=== PATIENT | female | born 1940 | race Caucasian/White ===

== ENCOUNTER 2024-02-28 12:03 | Emergency (ER) | payer OTHER ==
[~2024-02-28] VITALS: Ht 167.6 cm; Wt 81.6 kg
[~2024-02-28 12:03] MED LIST: AMIO200T66 PO; APIX2.5T PO; FURO20TA4 PO; GABA-529 PO; INSU100V SUBCUT; INSU300I SQ; LIP40 PO; LISI20TA30 PO; LOPE2CAP PO; LORA-258 PO; METO50TA7 PO
[2024-02-28 12:11] VITALS: BP_SYST 155; PULSE 53; RESP 23; TEMP 98.5; O2SAT 93
[2024-02-28 12:27] LABS: BASOPHILS # (AUTO) 0.1 K/uL (0.0-0.2); BASOPHILS % (AUTO) 1.2 % (0.0-2.0); EOSINOPHILS # (AUTO) 0.2 K/uL (0.0-0.4); EOSINOPHILS % (AUTO) 2.2 % (0.0-4.0); HEMATOCRIT 31.9 % (36-48); HEMOGLOBIN 10.4 g/dL (12.0-16.0); LYMPHOCYTES # (AUTO) 1.2 K/uL (1.0-5.5); LYMPHOCYTES % (AUTO) 13.4 % (20.5-51.5); MEAN CORPUSCULAR HEMOGLOBIN 27 pg (27-31); MEAN CORPUSCULAR HGB CONC 33 % (32-36); MEAN CORPUSCULAR VOLUME 81 fL (79.0-98.0); MONOCYTES # (AUTO) 0.6 K/uL (0.0-1.0); MONOCYTES % (AUTO) 6.1 % (1.7-9.3); NEUTROPHILS # (AUTO) 7.1 K/uL (1.8-7.7); NEUTROPHILS % (AUTO) 77.1 % (40.0-70.0); PLATELET COUNT (AUTO) 251 K/uL (130-430); RED BLOOD CELL COUNT(AUTO) 3.92 MIL/uL (4.2-6.2); RED CELL DISTRIBUTION WIDTH 15.5 % (9.0-15.0); WHITE BLOOD COUNT (AUTO) 9.2 K/uL (4.8-10.8)
[2024-02-28 13:01] LABS: ANION GAP 8 (5-15); CALCIUM 8.4 mg/dL (8.4-11.0); CARBON DIOXIDE 30 mmol/L (23-29); CHLORIDE 104 mmol/L (98-107); CREATINE KINASE, TOTAL 26 U/L (26-192); CREATININE 0.95 mg/dL (0.55-1.30); GLUCOSE 155 mg/dL (74-106); POTASSIUM 3.5 mmol/L (3.5-5.1); SODIUM SERUM 142 mmol/L (136-145); UREA NITROGEN, BLOOD 15 mg/dL (8-21)
[2024-02-28 13:02] LABS: INR 1.1 (0.8-1.2); PROTHROMBIN TIME 11.1 SECS (9.5-12.5)
[2024-02-28] MEDS ORDERED: INSU300I3 SUBCUT (13:15)
[2024-02-28] MEDS ORDERED: HYDR25TA4 PO (13:16)
[2024-02-28] MEDS ORDERED: HYDR-3922 PO (13:16)
[2024-02-28] MEDS ORDERED: iohexoL 350 mgI/mL, 100 ML INFUS..BTL IV ONE (13:19)
[2024-02-28 15:22] VITALS: BP_SYST 144; PULSE 60; RESP 19; TEMP 98.5; O2SAT 94
== END 2024-02-28 15:20 | disposition home or self-care (01) ==
LOC: SED 12:03
DX: J90 Pleural effusion, not elsewhere classified (principal); R07.89 Other chest pain; R60.0 Localized edema; I10 Essential (primary) hypertension; I25.2 Old myocardial infarction; I48.91 Unspecified atrial fibrillation; Z88.1 Allergy status to other antibiotic agents; Z79.899 Other long term (current) drug therapy; Z79.2 Long term (current) use of antibiotics
CPT/HCPCS: 99285; 71275; 71045; 80048; 82550; 83880; 85025; 85610; 85730; 84484; 36415; 93005; Q9967